=== PATIENT | male | born 1995 | race Caucasian/White ===

== ENCOUNTER 2017-09-06 17:23 | Inpatient (IN) | payer MEDICAID, OTHER ==
--- NOTE | 2017-09-06 17:41 | EDPHY ---
H & P Time Seen by Provider: 09/06/17 17:34 HPI/ROS: HPI Depression. 22-year-old male on foot. Patient has a history of depression. He presents the emergency department complaining of worsening depression over the last 2-3 weeks. He reports that today he has felt helpless. He reports that he is not enjoying things that he usually enjoys. He reports having suicidal thoughts today but does not have a plan to hurt himself. He is currently not on any antidepressant or other psychiatric medications. ROS: Constitutional: No fever, no chills. No weakness. Eyes: No discharge. No changes in vision. ENT: No sore throat. No nasal congestion or rhinorrhea. Respiratory: No cough. No shortness of breath. Cardiac: No chest pain, no palpitations. Gastrointestinal: No abdominal pain, no vomiting, no diarrhea. Genitourinary: No hematuria. No dysuria or increased frequency with urination. Musculoskeletal: No back pain. No neck pain. No myalgias or arthralgias. Skin: No rashes. Neurological: No headache. No focal weakness or altered sensation. Past medical history: Acid reflux. Depression. Social history: Nonsmoker. Denies drugs or alcohol. Here by himself. Physical Exam: General Appearance: Alert, flat affect, tearful. This patient is responding to questions appropriately and in full sentences. This patient appears well- hydrated and well-nourished. Eyes: Pupils equal and round no pallor or injection. No lid edema, erythema or injection. Respiratory: There are no retractions, lungs are clear to auscultation with good air movement bilaterally. Cardiovascular: Regular rate and rhythm. No murmur. Gastrointestinal: Abdomen is soft and nontender, no masses, bowel sounds normal. No focal tenderness at McBurney's point. No Liu sign. Neurological: Motor sensory function is grossly intact. Cranial nerves are normal. Gait is normal. Skin: Warm and dry, no rashes. Musculoskeletal: Neck is supple and nontender. Extremities are symmetrical. All joints range without pain or impingement. Psychiatric: No agitation. As above. Database: EKG: Imaging: Procedures: Emergency department course: Triage vital signs reviewed. He was placed on a detainer at 5:45 p.m.. He is cooperative. Appropriate blood work sent. Behavioral Health notified. 10:30 p.m., the patient is still awaiting evaluation by [facility]. 11:00 p.m., the patient has been seen and evaluated by [facility]. He was placed on an M1 hold. He is going to be admitted to [address] [place] [address] under the care of Dr. Peralta. I have filled out the appropriate transfer paperwork. The patient 's remaining emergency department course under my care has been uneventful. He was transferred in stable condition. Differential Diagnosis: The differential diagnosis on this patient includes but is not limited to situational depression, major depression, suicidal ideation. This represents a partial list of diagnoses considered. These considerations are based on history , physical exam, past history, reassessment and diagnostic testing. Smoking Status: Never smoked Constitutional: Initial Vital Signs Temperature (C) 36.3 C 09/06/17 17:26 Heart Rate 58 L 09/06/17 17:26 Respiratory Rate 17 09/06/17 17:26 Blood Pressure 138/63 H 09/06/17 17:26 O2 Sat (%) 98 09/06/17 17:26 O2 Delivery Mode Room Air Allergies/Adverse Reactions: No Known Allergies Allergy (Verified 11/18/14 11:03) Home Medications: Medication Instructions Recorded NK [No Known Home Meds] 11/18/14 Medical Decision Making - Data Points Laboratory Results: Laboratory Results 09/06/17 18:03 09/06/17 18:03 09/06/17 09/06/17 09/06/17 18:15 18:03 18:03 WBC 8.66 10^3/uL 10^3/uL (3.80-9.50) RBC 4.80 10^6/uL 10^6/uL (4.40-6.38) Hgb 15.3 g/dL g/dL (13.7-17.5) Hct 44.4 % % (40.0-51.0) MCV 92.5 fL fL (81.5-99.8) MCH 31.9 pg pg (27.9-34.1) MCHC 34.5 g/dL g/dL (32.4-36.7) RDW 13.8 % % (11.5-15.2) Plt Count 242 10^3/uL 10^3/uL (150-400) MPV 11.5 fL fL (8.7-11.7) Neut % (Auto) 57.8 % % (39.3-74.2) Lymph % (Auto) 31.2 % % (15.0-45.0) [place] % (Auto) 8.9 % % (4.5-13.0) Eos % (Auto) 1.4 % % (0.6-7.6) Baso % (Auto) 0.5 % % (0.3-1.7) Nucleat RBC Rel Count 0.0 % % (0.0-0.2) Absolute Neuts (auto) 5.01 10^3/uL 10^3/uL (1.70-6.50) Absolute Lymphs (auto) 2.70 10^3/uL 10^3/uL (1.00-3.00) Absolute Monos (auto) 0.77 10^3/uL 10^3/uL (0.30-0.80) Absolute Eos (auto) 0.12 10^3/uL 10^3/uL (0.03-0.40) Absolute Basos (auto) 0.04 10^3/uL 10^3/uL (0.02-0.10) Absolute Nucleated RBC 0.00 10^3/uL 10^3/uL (0-0.01) Immature Gran % 0.2 % % (0.0-1.1) Immature Gran # 0.02 10^3/uL 10^3/uL (0.00-0.10) Sodium 142 mEq/L mEq/L (135-145) Potassium 4.1 mEq/L mEq/L (3.3-5.0) Chloride 102 mEq/L mEq/L (97-110) Carbon Dioxide 26 mEq/l mEq/l (22-31) Anion Gap 14 mEq/L mEq/L (8-16) BUN 14 mg/dL mg/dL (7-23) Creatinine 1.1 mg/dL mg/dL (0.7-1.3) Estimated GFR > 60 Glucose 72 mg/dL mg/dL (70-100) Calcium 9.8 mg/dL mg/dL (8.5-10.4) Urine Opiates Screen NEGATIVE (NEGATIVE) Urine Barbiturates NEGATIVE (NEGATIVE) Ur Phencyclidine Scrn NEGATIVE (NEGATIVE) Ur Amphetamine Screen NEGATIVE (NEGATIVE) U Benzodiazepines Scrn NEGATIVE (NEGATIVE) Urine Cocaine Screen NEGATIVE (NEGATIVE) U Marijuana (THC) Screen NEGATIVE (NEGATIVE) Ethyl Alcohol < 10 mg/dL mg/dL (0-10) Departure - Departure Disposition: [facility] IP Clinical Impression: Suicidal ideation, Depression Referrals: PATY ESPINOZA [Other] - As per Instructions
[2017-09-06 18:13] LABS: PLATELET COUNT 242 10^3/uL (150-400)
[2017-09-07] MEDS ORDERED: NICOTINE POLACRILEX 2 MG GUM B PRN
[2017-09-07] MEDS ORDERED: ACETAMINOPHEN 325 MG TAB PO PRN
[2017-09-07] MEDS ORDERED: MAGNESIUM HYDROXIDE 30 ML UDCUP PO PRN
[2017-09-07] MEDS ORDERED: LORazepam 0.5 MG TAB PO PRN
[2017-09-07] MEDS ORDERED: MAG HYDROX/AL HYDROX/SIMETH 30 ML UDCUP PO PRN
[2017-09-07] MEDS ORDERED: MELATONIN 3 MG TAB PO PRN
[2017-09-07] MEDS: PANTOPRAZOLE SODIUM 40 MG TAB PO SCH (14:10)
[2017-09-07] MEDS: VENLAFAXINE XR 37.5 MG CAP PO SCH (14:10)
[2017-09-07] MEDS: hydrOXYzine HCL 50 MG TAB PO PRN (15:22)
--- NOTE | 2017-09-07 16:27 | BCON ---
[f rep st] BEHAVIORAL HEALTH CONSULTATION INTERNAL MEDICINE CONSULTATION DATE OF CONSULTATION: 09/07/2017 REFERRING PHYSICIAN: Neo Peralta MD REASON FOR REFERRAL: Medical clearance for inpatient behavioral health stay. HISTORY OF PRESENT ILLNESS: This patient self presented to the emergency department, complaining of depression. He was having suicidal thoughts. He was evaluated by the mental health team and admitted for further psychiatric care. He complains of pain and tightness around his stomach. He otherwise is without any acute medical complaints. He reports that he stopped smoking marijuana about a week ago. He reports that he has had GI endoscopy with an upper GI study, including the proximal duodenum, which showed only inflammation with normal biopsy. His abdominal symptoms have been going on for approximately 4 months, over which time he reports he has lost about 40 pounds. PAST MEDICAL HISTORY: Chronic abdominal pain. PAST SURGICAL HISTORY: He has not had any surgeries. MEDICATIONS: He was given a 2-week supply of omeprazole, and he was on no other medications. ALLERGIES: There are no known drug allergies. SOCIAL HISTORY: He is a nonsmoker and nondrinker. He had used regular marijuana for about a year, but has quit for about a week. He lives with his parents and has been working as a service delivery consultant. FAMILY HISTORY: Noncontributory. REVIEW OF SYSTEMS: He reports abdominal discomfort and weight loss. He denies constipation or diarrhea. He has occasional nausea and vomiting, but not recently. He denies cough or dyspnea, fevers or chills, pain other than abdominal pain, and otherwise, a 10-point review of systems is negative. PHYSICAL EXAM: VITALS: Blood pressure is 119/61. Heart rate is 63. Respiratory rate is 14. Oxygen saturation is 92% on room air. Temperature is 36.9 degrees centigrade. His weight is 65.8 kg for a body mass index of 22.7. GENERAL: This is a well-nourished, well-developed man, appears his chronologic age, cooperative and in no acute distress. HEENT: Extraocular movements are intact. Pupils are equal, round, reactive to light. Mucous membranes are moist. Dentition is in good condition. There are no oropharyngeal mucosal abnormalities. He has an uncrowded airway, Mallampati class 2. NECK: Supple. HEART: Regular rate and rhythm, with no murmurs, rubs, or gallops. LUNGS: Clear to auscultation bilaterally. ABDOMEN: Soft, nontender, nondistended, with normoactive bowel sounds. EXTREMITIES: There is no cyanosis, clubbing, or edema. NEUROLOGIC: He is alert and oriented x3. Cranial nerves 2-12 are grossly intact. There is no focal weakness, and sensation is intact to light touch. Gait is within normal limits. LABORATORY STUDIES: From the emergency department, CBC was entirely within normal limits. Serum chemistry revealed normal renal function and electrolytes. Toxicology screen in the serum was negative for ethyl alcohol, and the urine was negative for any substances of abuse. ASSESSMENT AND RECOMMENDATIONS: 1. Mental health issues. Pending further evaluation and management per Psychiatry and the mental health team. 2. Dyspepsia, chronic, and weight loss. He denies that these symptoms have been coincident with his psychiatric symptoms. He reports a normal endoscopy. He has had some relief of symptoms with a proton pump inhibitor, and pantoprazole has been ordered. Advised continuation of pantoprazole. Regarding weight loss, I will order a TSH to ensure that his thyroid function is normal. 3. Marijuana abuse, currently abstinent. Encouraged continued abstinence. I see no medical contraindications to this patient's continued stay on the inpatient behavioral health unit or to any psychiatric medications or procedures. Thank you very much for including me in the care of this patient, and please do not hesitate to contact me or the hospitalist service should there be need for further medical evaluation. /[id number]/MODL MTDD
--- NOTE | 2017-09-07 16:56 | BAPA ---
[f rep st] ADMISSION PSYCHIATRIC ASSESSMENT DATE OF SERVICE: 09/07/2017 CHIEF COMPLAINT: "Thoughts of not wanting to live. Really no thoughts of suicide. Closest plan was thinking about letting go of the wheel while I was driving in traffic. No intent on acting on this plan." HISTORY OF PRESENT ILLNESS: Per ED note dated 09/06/17, the patient presented to the emergency department complaining of worsening depression over the last 2 or 3 weeks. He reported he felt helpless, not enjoying things that he typically enjoyed engaging in. The patient reported having suicidal thoughts today, but no plan to hurt himself. The patient is currently not on any antidepressants or other psychiatric medications. Per [facility] evaluation dated 09/18, the patient reported he was not feeling well, stated he could not stop crying, reported he had lunch with his mom and grandma today and then he went home with thoughts of wanting to and having very dark thoughts. The patient was brought to the [facility] ED by his mother who initially took him to a clinic in [place] and they suggested she take him to the ER. The patient stated he had been having suicidal thoughts for the last 2 weeks and has not been able to stop thinking about it, except when he falls asleep. The patient reported he has been smoking marijuana daily for the past year and a half and he thinks that this was making his thoughts worse so he stopped smoking about a week ago, but now he is not sleeping well. The patient reports he saw a therapist for the first time yesterday, but is not taking any medications, nor has he taken any medications in the past. The patient was admitted involuntarily and is currently on an M1 hold due to a danger to himself and he is hospitalized for safety, crisis stabilization, and medication evaluation. The patient describes circumstances that contributed to crisis that led to current hospitalization, as for the last 2-3 weeks, he has been feeling very depressed and suicidal. Reports he was using marijuana heavily and he quit about a week ago, and that is when these thoughts started. States a history of smoking marijuana all day and then drank alcohol, and this combination, the patient states was like a switch in his head that led to deep depression and dark thoughts. The patient reports no history of being diagnosed with a mental health illness. The patient reports he was using marijuana recently and quit about a week ago prior to this hospitalization. The patient describes current psychiatric symptoms as depression symptoms that have been present for at least a 2-week period over the last 6 months. The patient reports symptoms of depressed mood nearly every day, diminished interest in all activities most of the day, nearly every day. The patient reports a poor appetite. Reports recent insomnia and states he has also had periods of hypersomnia, periods of fatigue nearly every day, feelings of worthlessness and excessive guilt. The patient reports he is having difficulty concentrating when he is feeling very depressed and reports indecisiveness nearly every day and recent suicidal ideation. The patient reports he typically is very anxious. Reports anxiety symptoms, including excessive anxiety and worry occurring more days than not for over at least the last 6 months. Reports difficulty to control his worry. Reports feeling restless and keyed up, being easily fatigued, has difficulty concentrating. Reports periods of irritability, muscle tension, and sleep disturbance. The patient describes no past abuse history. The patient denies other psychiatric symptoms including symptoms of milton, ADHD, OCD, PTSD, psychosis, and any other symptoms of a psychiatric disorder, not already described above. The patient describes current psychiatric symptoms are impacting managing his day-to-day life as having some difficulty with household responsibilities. States he is having no difficulty going to work each day. The patient reports he has not been socializing much. States he does get along with his family and that his mother is very supportive. The patient reports he is currently not in school and he typically enjoys playing video games for hours. However, lately has not been able to get any enjoyment from playing video games. The patient reports he is not generally satisfied with his life at this time. The patient denies current suicidal ideation and reports thoughts of and reports having the thoughts of just wanting all this to end. The patient reports protective factors or reasons to live as his family and friends and states he has a future goal of going back to school and reports his main support network is his mother. The patient denies homicidal ideation and denies current self-injurious ideation. The patient states he currently does not have a provider for medication management and he recently saw Dr. Drake in [place] for therapy. PAST PSYCHIATRIC HISTORY: The patient describes the following psychiatric history. The patient reports no past diagnoses. No past psychotropic medications. No outpatient medication management from a psychiatrist. Reports he has never been inpatient psychiatric hospital. The patient reports no history of withdrawal from drugs or alcohol. The patient reports no history of suicide attempts and no history of self-injurious behavior. ALLERGIES: The patient describes no known allergies. CURRENT MEDICATIONS: None. PAST MEDICAL HISTORY: The patient describes the following: The patient reports no history of neurological disorders including history of organic brain disease, traumatic brain injury, or concussions. The patient reports no major illnesses or no major hospitalizations in his history. SOCIAL HISTORY: The patient describes the following social history. The patient reports he was born in [place]. His parents were at time of his and his parents at age 9. Patient reports he was raised majority of his life in [place] by his mother. Reports he is currently living in [place] with his mother. The patient reports he met all his developmental milestones growing up and reports no history of learning delays or difficulties. The patient reports his sexual orientation is open, mostly heterosexual and states he is currently not in a relationship and has never been and has no children. 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 Highest level of education, high school. No duty. No sikh or spiritual practice and no legal issues. SUBSTANCE USE HISTORY: The patient reports he first used alcohol at the age of 17. Reports using alcohol about once a month. Has about 2 shots per occurrence and last used 3 weeks ago. The patient reports he does not use nicotine. Drinks about 1 cup of coffee per day. Uses marijuana daily and reports he has used as much as 1 ounce per month and reports last using marijuana 1 week ago. The patient reports no other illicit substance use including use of meth, cocaine, crack, heroin, prescription medication abuse, or any other substances of abuse. FAMILY PSYCHIATRIC HISTORY: The patient describes the following family psychiatric history. Reports his mother has been diagnosed with depression and is currently treated with Effexor and Seroquel. The patient reports his sister has been diagnosed with depression. Reports he knows she currently takes antidepressants, but he is unsure of what medication she takes. The patient reports no history of suicide or suicide attempts in his family and reports family history of substance abuse as his dad abuses alcohol. ADMISSION LAB STUDIES: CBC dated 09/06/17, within normal limits. Chemistry dated 09/06/17, within normal limits. Toxicology all negative including being negative for marijuana. The patient did report that he used marijuana 1 week ago. However, his marijuana tox screen is negative. MENTAL STATUS EXAM: The patient is a well-nourished, well-developed male looking stated chronological age. The patient's attire is appropriate. He is dressed casually and is neat and clean. The patient's grooming status is appropriate and clean. His ambulation is independent and gait is normal and coordinated. The patient's posture is normal and relaxed as he is seated answering interview questions. The patient's eye contact is appropriate throughout the interview, is adequate throughout the interview. Motor activity is appropriate and purposeful, organized, coordinated, with no involuntary movements noted. The patient's attitude is cooperative and the patient is friendly. The patient appears to be attentive during the interview and relates well to this interviewer. Language production is spontaneous. Rate, volume, tone, and amount, all within normal limits. Articulation is clear, with no evidencing of impairments. The patient reports mood as anxious. His affect is adequately arranged and congruent with mood. The patient's thought process is linear and logical with no loose associations, tangential thought, thought blocking, concrete thinking, or any other signs of formal thought disorder. The flow is goal-directed. The patient does not report suicidal or homicidal thoughts, ideas, or plans. Patient denies auditory or visual hallucinations. The patient denies delusions. The patient does not appear to be attending to internal stimuli. Orientation is full to person, full to place, full to time, and full to situation. The patient's attention and concentration are adequate. The patient's insight is adequate. Judgment adequate and there is no evidence of gross cognitive dysfunction at any point during the interview and no evidence of apparent dysfunction in recent or remote memory noted. The patient reports that he has currently been having trouble sleeping and his appetite has been "non-existent." DIAGNOSES: 1. Major depressive disorder, severe, with anxious distress. 2. Cannabis use disorder. 3. Cannabis use withdrawal. 4. Generalized anxiety disorder. FORMULATION: The patient is a 22-year-old male, single, employed, living with his mother in [place], [place], who presents to the hospital involuntarily due to risk to harm himself and is currently on an M1 hold. The patient does require continued inpatient care because of current mood instability and recent suicidal thoughts. The patient presents of increasing depression and anxiety symptoms that have been steadily increasing over the past several weeks. The patient's life has been affected by these problems including increased suicidal thoughts, at one point even thinking about how he would carry this out, and increased depression anxiety symptoms that led to this crisis. The exacerbation of symptoms was preceded by the patient abstaining from using marijuana, reporting that these symptoms were exacerbated after he stopped using marijuana about 1 week ago. The patient reports no past psychiatric history and no psychiatric treatment with psychotropic medications, and no other treatment besides recently seeing a therapist one time in [place] prior to this hospitalization. The patient is a moderate to high suicide safety risk due to current mood instability, recent suicidal thoughts, and history of having suicidal thoughts, that the patient reports have been increasing in frequency and intensity. Protective factors while hospitalized include ongoing safety checks, active involvement in treatment, and support from our treatment team. The patient could benefit from inpatient hospitalization for safety, crisis stabilization, and medication evaluation. PLAN OF TREATMENT: 1. Psychotropic medications. After discussing options, risks, and benefits, the patient agrees to Effexor XR 37.5 mg p.o. daily for anxiety and depression. Remeron 15 mg p.o. at bedtime for depression, anxiety, and this medication may treat insomnia symptoms in the short term. Vistaril 50 mg p.o. q.4 hours p.r.n. for anxiety. The patient reports history of gastritis and agrees to a trial of Protonix 40 mg p.o. daily and this will be followed up by Dr. Padilla. 2. Labs. A1c will be added to the ER labs that were recently drawn. A fasting lipid panel to be completed tomorrow morning before breakfast and fasting, and liver function panel to be added to the ER labs that were recently drawn. 3. Therapy. Milieu and group therapy. 4. Further investigation including gathering information from patient's relatives and review of past case records will be ongoing throughout the patient 's stay. 5. Continued evaluation. Will be ongoing during the course of the patient's inpatient hospitalization to inform treatment and discharge planning. 6. Safety plan and followup outpatient appointments to be established prior to discharge. 7. This interviewer will confer with inpatient treatment team regarding initial treatment plan and discharge planning. 8. Review informed consent and recommendations for psychotropic medications with the patient now and throughout the patient's stay. The informed consent and recommendations are listed below. ESTIMATED LENGTH OF STAY: 1 to 3 days. PSYCHOTROPIC MEDICATION TREATMENT INFORMED CONSENT and RECOMMENDATIONS: Review nature of condition, diagnosis, and prognosis. Review nature and purpose of psychotropic medication treatment. Review type of psychotropic medications being ordered. Review risk and benefits of psychotropic medication treatment. Review probable length of time will need to take medications. Review risk and benefits of not undergoing psychotropic medication treatment. Review alternative treatments to psychotropic medications. Review psychotropic medications contraindications, drug-drug interactions, side effects, and importance of reporting any side effects to a psychiatric provider or nurse during inpatient hospitalization, and upon discharge to patients psychiatric outpatient provider, primary care provider, or other health patient care specialist. Review importance of asking a nurse, psychiatric provider, or primary care provider any questions or problems concerning the psychotropic medications. Verifty patient understands the information that has been provided, and understands, accepts, and agrees to psychotropic medications. Review patients safety plan and importance of patient to communicate to staff while hospitalized if patient is ever a danger to self/others, or unable to care for self, and upon discharge, the importance for patient to contact [facility] or [facility], or go to the nearest emergency room, if patient is ever a danger to self/others, or unable to care for self. Recommend that upon discharge patient establish medication management treatment with a psychiatric provider, establishes routine therapy appointments, and follow-up with primary care provider. Verify patient understands and agrees to these recommendations. /[id number]/MODL MTDD
[2017-09-07] MEDS: MIRTAZAPINE 15 MG TAB PO SCH (20:39)
[2017-09-08] MEDS: VENLAFAXINE XR 37.5 MG CAP PO SCH (08:17)
[2017-09-08] MEDS: PANTOPRAZOLE SODIUM 40 MG TAB PO SCH (08:17)
[2017-09-08] MEDS: hydrOXYzine HCL 50 MG TAB PO PRN (10:45)
[2017-09-08] MEDS ORDERED: GABAPENTIN 300 MG CAP PO ONE (10:56)
--- NOTE | 2017-09-08 14:14 | SOAPPROG ---
SOAP Progress Note Assessment/Plan: Assessment: MDD, single episode, severe; ABA. Patient is improving (see subjective/ objective note). Patient could benefit from continued inpatient hospitalization for crisis stabilization, safety, and medication evaluation. Plan: Review psychotropic medication treatment informed consent and recommendations. After reviewing risk and benefits, patient agrees to continue medications with the following changes. Medication changes include start trial of Gabapentin 300 mg po TID for anxiety. No other medication changes at this time as more time is needed to determine ongoing tolerability and efficacy. Plan is to continue to observe patient for response and side effects from medications, and ongoing monitoring and evaluation. Next steps are for patient to meet with wound care rn to plan a safe discharge plan and establish outpatient services for ongoing treatment. Consider discharge on Monday if patient is in stable condition, safe, and has a safe discharge plan. PSYCHOTROPIC MEDICATION TREATMENT INFORMED CONSENT and RECOMMENDATIONS: Review nature of condition, diagnosis, and prognosis. Review nature and purpose of psychotropic medication treatment. Review type of psychotropic medications being ordered. Review risk and benefits of psychotropic medication treatment. Review probable length of time patient will need to take medications. Review risk and benefits of not undergoing psychotropic medication treatment. Review alternative treatments to psychotropic medications. Review psychotropic medications contraindications, drug-drug interactions, side effects, and importance of reporting any side effects to a psychiatric provider or nurse during inpatient hospitalization, and upon discharge to patients psychiatric outpatient provider, primary care provider, or other health child caregiver. Review importance of asking a nurse, psychiatric provider, or primary care provider any questions or problems concerning the psychotropic medications. Verify patient understands the information that has been provided, and understands, accepts, and agrees to psychotropic medications. Review patients safety plan and importance of patient to report to staff while hospitalized if patient is ever a danger to self/others, or unable to care for self, and upon discharge, the importance for patient to contact [facility] or [facility], or go to the nearest emergency room, if patient is ever a danger to self/others, or unable to care for self. Recommend that upon discharge patient establish medication management treatment with a psychiatric provider, establishes routine therapy appointments, and follow-up with primary care provider. Verify patient understands and agrees to these recommendations. 09/08/17 14:15 Subjective: Following up with patient for evaluation of depression, anxiety, and safety. Patient reports, Feel much better, less anxious, and less depressed. Patient reports he has improved since his admission, tolerating medications with no report of side effects, reports attending and engaging in groups, slept 10 hours last night, states his appetite has improved considerably since his admission, eating all meals, reports no SI/HI, and expresses slight anxiety at this time, with no other psychiatric symptoms expressed. Patient agrees to sign -in for voluntary hospitalization with plan to discharge Monday if stable, safe , and safe discharge plan established. Objective: Vital Signs Temp Pulse Resp BP Pulse Ox 36.6 C 59 L 16 112/58 L 98 09/08/17 06:00 09/08/17 06:00 09/08/17 06:00 09/08/17 06:00 09/08/17 06:00 Consulted with treatment team staff for update on patients progress in treatment. Nurses report patient is engaged in his treatment and is progressing well. Patient reports no SI/HI, slept 8 hours per staff report, and is taking meds as prescribed with no report of SEs. store coordinator reports OP appointments are scheduled and referrals have been made for outpatient services. Signs noted: moderately anxious Patient is currently improving, tolerating medications with no reports of side effects, and with good response for anxiety and depression symptoms. The patient presents casually dressed and with good hygiene, and looks stated age. Patient is sitting, posture is upright, and position is relaxed. Patient appears awake, alert, and responds appropriately and reasonably during interview. Patient is engaged, relates well to interviewer, and emotional facial expression is appropriate to situation and changes appropriately with topic. Patient is cooperative, makes comfortable eye contact, and movements are voluntary, deliberate, coordinated, and smooth and even with no inappropriate movements. Patient makes laryngeal sounds effortlessly and shares conversation appropriately; pace of conversation is appropriate, and stream of talking is fluent; articulation is clear and understandable; word choice is effortless and appropriate for education level; completes sentences, occasionally pausing to think; rate and volume are appropriate for interview and setting. Patient reports mood as anxious. Patients affect is stable with full variable range, congruent with mood, and appropriate to speech and circumstances. Patient has linear and logical thinking, with no loose associations, tangential thought, thought blocking, concrete thinking, or any other signs of formal thought disorder. Patient denies suicidal and homicidal ideation, and denies hallucinations and delusions. Patient appears to be a reliable historian with sound judgement and good insight into current condition. Patient has no apparent dysfunction in recent or remote memory noted , and no evidence of gross cognitive dysfunction noted at any point during the interview. - Time Spent With Patient Time Spent With Patient: 30 minutes; met with patient independently. - Pending Discharge Pending Discharge Within 24 Hours: No Pending Discharge Within 48 Hours: No ICD10 Worksheet Patient Problems: Problems Problem Status Onset Passive suicidal ideations Acute Cannabis use disorder, severe, in controlled environment Acute Cannabis withdrawal Acute Generalized anxiety disorder Acute Depression, major, single episode, severe Acute
[2017-09-08] MEDS: GABAPENTIN 300 MG CAP PO SCH ×2 (15:17→22:12)
[2017-09-08] MEDS: MIRTAZAPINE 15 MG TAB PO SCH (22:12)
[2017-09-09] MEDS: GABAPENTIN 300 MG CAP PO SCH ×3 (08:31→21:10)
[2017-09-09] MEDS: VENLAFAXINE XR 37.5 MG CAP PO SCH (08:31)
[2017-09-09] MEDS: PANTOPRAZOLE SODIUM 40 MG TAB PO SCH (08:31)
[2017-09-09] MEDS: hydrOXYzine HCL 50 MG TAB PO PRN ×2 (10:44→18:06)
--- NOTE | 2017-09-09 13:16 | SOAPPROG ---
SOAP Progress Note Assessment/Plan: Assessment: Assessment: MDD, single episode, severe; ABA. Patient is improving (see subjective/ objective note). Patient could benefit from continued inpatient hospitalization for crisis stabilization, safety, and medication evaluation. Plan: 09/09/17 13:09 1. Patient reports significant situational stressors that were contributing to his anxiety and most likely causing stomach issues. He is willing to address these with individual therapy, which MD strongly recommends. 2. Patient denies any SE's from new meds. Complains of some initial drowsiness, but is improving. 3. Denies any SI/HI. 4. Anticipate d/c on Monday. Subjective: Met with patient, reviewed chart and d/w staff. Patient reports mood is "much better" since "we were able to figure out my stomach issues." He believes his stomach pain was d/t anxiety. He says he has been perseverating about "all the horrible things I have to do." When MD asked for examples, patient listed: 1) "paying my taxes which are 2 months late", 2) looking for a better job, and 3) "figuring out what I'm going to do with my life." MD recommended talking to a therapist in order to learn how to cope with these stressors more effectively and to address his anxiety sxs. Patient agreed this was a good idea. Patient denied any SI/HI. Objective: Vital Signs Temp Pulse Resp BP Pulse Ox 36.3 C 79 16 117/70 98 09/09/17 05:51 09/09/17 05:51 09/09/17 05:51 09/09/17 05:51 09/09/17 05:51 MSE: Affect: Euthymic Mood: "Much better" TP: Linear TC: Denies any SI/HI, no AH/VH Insight/Judgment: Fair - Time Spent With Patient Time Spent With Patient: 20" - Pending Discharge Pending Discharge Within 24 Hours: No Pending Discharge Within 48 Hours: Yes Pending Discharge Date: 09/11/17 (Likely to d/c on Monday) Pending Discharge Time: 11:00 ICD10 Worksheet Patient Problems: Problems Problem Status Onset Cannabis use disorder, severe, in controlled environment Acute Cannabis withdrawal Acute Depression, major, single episode, severe Acute Generalized anxiety disorder Acute Passive suicidal ideations Acute
[2017-09-09] MEDS: MIRTAZAPINE 15 MG TAB PO SCH (21:10)
[2017-09-10] MEDS: PANTOPRAZOLE SODIUM 40 MG TAB PO SCH (08:39)
[2017-09-10] MEDS: GABAPENTIN 300 MG CAP PO SCH ×3 (08:39→20:58)
[2017-09-10] MEDS: VENLAFAXINE XR 37.5 MG CAP PO SCH (08:39)
[2017-09-10] MEDS: hydrOXYzine HCL 50 MG TAB PO PRN ×2 (10:54→14:49)
--- NOTE | 2017-09-10 14:17 | SOAPPROG ---
SOAP Progress Note Assessment/Plan: Assessment: Assessment: MDD, single episode, severe; ABA. Patient is improving (see subjective/ objective note). Patient could benefit from continued inpatient hospitalization for crisis stabilization, safety, and medication evaluation. Plan: 09/09/17 13:09 1. Patient reports significant situational stressors that were contributing to his anxiety and most likely causing stomach issues. He is willing to address these with individual therapy, which MD strongly recommends. 2. Patient denies any SE's from new meds. Complains of some initial drowsiness, but is improving. 3. Denies any SI/HI. 4. Anticipate d/c on Monday. 09/10/17 14:13 1. Patient tolerating meds with no SE's, mood is much improved, denies any SI/ HI. 2. Patient feels he is "ready" to discharge, but is willing to leave tomorrow once f/u appts are finalized. 3. Voluntary Subjective: Met with patient, reviewed chart and d/w staff. Patient is sleeping and eating well. He states his stomach is not bothering him any more since he started on Protonix and says his appetite is "much better" since admission. He is eating more in hospital than he did at home. He slept 9.5 hrs last night. MOC came to visit today and felt patient was ready to discharge. She feels patient is doing much better and has no concerns about his safety at her house. Patient was riding the exercise bike this afternoon and said he felt "good." He denies any SI/HI. Objective: Vital Signs Temp Pulse Resp BP Pulse Ox 36.3 C 60 16 111/57 L 95 09/10/17 06:00 09/10/17 06:00 09/10/17 06:00 09/10/17 06:00 09/10/17 06:00 MSE: Affect: Euthymic Mood: "Good" TP: Linear TC: Denies any SI/HI, no AH/VH Insight/Judgment: Fair - Time Spent With Patient Time Spent With Patient: 15" - Pending Discharge Pending Discharge Within 24 Hours: Yes Pending Discharge Within 48 Hours: No Pending Discharge Date: 09/11/17 (Anticipate d/c tomorrow) Pending Discharge Time: 11:00 ICD10 Worksheet Patient Problems: Problems Problem Status Onset Cannabis use disorder, severe, in controlled environment Acute Cannabis withdrawal Acute Depression, major, single episode, severe Acute Generalized anxiety disorder Acute Passive suicidal ideations Acute
[2017-09-10] MEDS: MIRTAZAPINE 15 MG TAB PO SCH (20:59)
[2017-09-11 06:43] VITALS: BP 120/58
[2017-09-11] MEDS: GABAPENTIN 300 MG CAP PO SCH (07:47)
[2017-09-11] MEDS: VENLAFAXINE XR 37.5 MG CAP PO SCH (07:47)
[2017-09-11] MEDS: PANTOPRAZOLE SODIUM 40 MG TAB PO SCH (07:47)
[2017-09-11] MEDS: hydrOXYzine HCL 50 MG TAB PO PRN (09:50)
--- NOTE | 2017-09-11 16:18 | BDS ---
[f rep st] BEHAVIORAL HEALTH DISCHARGE SUMMARY REASON FOR ADMISSION: The patient was admitted on a M1 hold for inpatient hospitalization due to being a danger to himself and patient was admitted for safety, crisis stabilization, and medication evaluation. Per the ED note dated 09/06/2017, the patient presented to the emergency department complaining of worsening depression over the last 2-3 weeks, reporting feeling helpless. The patient reported he is not enjoying things that he typically enjoyed and patient reported having suicidal thoughts, but did not report a plan to hurt himself. For further information regarding reason for admission, please refer to psychiatric assessment and history dated 09/07/2017. ADMITTING DIAGNOSES: 1. Passive suicidal ideations. 2. Cannabis use disorder, severe, in controlled environment. 3. Cannabis withdrawal. 4. Generalized anxiety disorder. 5. Depression, major, single episode, severe. ADMISSION PHYSICAL EXAMINATION: The patient was seen by Dr. Padilla for an internal medicine consultation dated 09/07/2017. The patient did complain of some pain and tightness around his stomach. He was otherwise without any acute medical complaints and reported he stopped smoking marijuana about a week ago. The patient reported he had a GI endoscopy with an upper GI study, including the proximal duodenum, which showed only inflammation with normal biopsy. His abdominal symptoms have been going on for approximately 4 months over which time he reports he had lost about 40 pounds. The patient denied constipation or diarrhea. He reported occasional nausea and vomiting, but not recently. He denied cough, dyspnea, fevers, or chills without pain and any other abdominal pain, and otherwise a 10 point review of systems is negative. The patient's vital signs were within normal limits. His BMI was 22.7. LABORATORY DATA: Admission labs from the emergency department, CBC were entirely within normal limits. Serum chemistry revealed normal renal function and electrolytes. Toxicology screen in the serum was negative for alcohol and urine was negative for any substances of abuse. Fasting lipid panel, LDL cholesterol calculated was somewhat elevated at 114. All other fasting lipid panel results within normal limits. TSH within normal limits and toxicology was negative for all substances including marijuana, however, the patient did report using marijuana within the last week. HOSPITAL COURSE: The most prominent symptoms and behaviors while the patient was here were anxiety, depression, and insomnia. Target symptoms during hospitalization included anxiety, depression and insomnia. Treatment modalities utilized were as follows: Milieu and group therapy. Effexor XR 37.5 p.o. daily was started to target anxiety and depression symptoms. Medication was tolerated with no report of side effects and with fair response for symptoms. Remeron 7.5 mg p.o. at bedtime was started to target depression and insomnia symptoms. The medication was tolerated with no report of side effects and with good response for depression and insomnia symptoms. Vistaril 50 mg p.o. q.4 hours p.r.n. was started to target anxiety symptoms. This medication was tolerated with no report of side effects and with good response. The patient reported taking the Vistaril about once or twice a day and reported relief of anxiety symptoms after taking this medication. Gabapentin 300 mg p.o. three times daily was started to target anxiety symptoms. Medication was tolerated with no report of side effects and with good response. Protonix 40 mg p.o. daily was started to target abdominal discomfort symptoms. The patient reported no side effects from this medication and reported that upon discharge reported no more abdominal discomfort and reported that he plans to continue Prilosec after discharge. Overall, patient is improved considerably with no signs of psychiatric symptoms and no psychiatric symptoms expressed. The patient reports he has improved since his admission, states to be in stable condition and feels safe to discharge and contract for safety. The patient's response to treatment has been good. There were no adverse or unexpected results of treatment. The patient was safe throughout his stay, active in treatment, the patient engaged in groups and was appropriate with staff throughout the stay. The treatment team consensus is the patient is in stable condition and is safe to discharge today. CONDITION AT DISCHARGE: Patient is in stable condition and is no longer a danger to self or others, and is not gravely disabled due to mental illness. Patient is no longer in need of inpatient level of care, and can be safely and effectively treated within the community. The patients level of risk at time of discharge is low based on the risk assessment below following this discharge summary. MSE: The patient is casually dressed and with good hygiene, and looks stated age. Patient is sitting, posture is upright, and position is relaxed. Patient appears awake, alert, and responds appropriately and reasonably during interview. Patient is engaged, relates well to interviewer, and emotional facial expression is appropriate to situation and changes appropriately with topic. Patient is cooperative, makes comfortable eye contact, and movements are voluntary, deliberate, coordinated, and smooth and even with no inappropriate movements. Patient makes laryngeal sounds effortlessly and shares conversation appropriately; pace of conversation is appropriate, and stream of talking is fluent; articulation is clear and understandable; word choice is effortless and appropriate for education level; completes sentences, occasionally pausing to think; rate and volume are appropriate for interview and setting. Patient reports mood as euthymic. Patients affect is stable with full variable range, congruent with mood, and appropriate to speech and circumstances. Patient has linear and logical thinking, with no loose associations, tangential thought, thought blocking, concrete thinking, or any other signs of formal thought disorder. Patient denies suicidal and homicidal ideation, and denies hallucinations and delusions. Patient appears to be a reliable historian with sound judgement and good insight into current condition. Patient has no apparent dysfunction in recent or remote memory noted , and no evidence of gross cognitive dysfunction noted at any point during the interview. DISCHARGE DIAGNOSES: Cannabis use disorder; severe generalized anxiety disorder ; depression, major, single episode, severe. DISCHARGE MEDICATIONS: Effexor XR 37.5 mg p.o. daily, Remeron 7.5 mg p.o. at bedtime, gabapentin 300 mg p.o. three times daily, Vistaril 50 mg p.o. q.8 hours p.r.n. DISPOSITION: The patient's mother arrived today at the hospital to forklift picker the patient. The patient left hospital independently and voluntarily with his mother and plans to return home and stay with his mother after discharge. FOLLOWUP: fitness plan coordinator reports the appropriate outpatient follow-up services have been established and outpatient appointments have been scheduled. The patient received written instructions with times and dates of outpatient follow-up appointments. The following follow-up recommendations were provided to the patient at discharge: Continue psychotropic medications as prescribed and attend appointments as scheduled. Report any side effects to a psychiatric outpatient provider, a primary care provider, or other health family day care worker. Address any questions or problems concerning the psychotropic medications with a psychiatric outpatient provider, a primary care provider, or other health family day care worker. Contact [facility] or [facility], or go to the nearest emergency room, if you are ever a danger to yourself/others, or unable to care for yourself. As soon as possible, establish a routine medication management treatment with a psychiatric provider, establish routine therapy appointments, and follow-up with a primary care provider. LEGAL COURSE: The patient was on an M1 hold upon arriving. The patient was on the M1 hold due to be a danger to himself and was involuntarily hospitalized for safety crisis stabilization and medication evaluation. The patient did become voluntary during his stay and was discharged today independently and voluntarily. ATTITUDE AT TIME OF DISCHARGE: The patient's attitude was positive at time of discharge and the patient reports looking forward to discharging today. The patient reports he feels safe at discharge, is no longer a danger to himself or others, is in stable condition and contracts for safety. The patient states he will continue medications as prescribed and established medication management treatment with an outpatient provider after discharge. The patient reports he understands the information that has been provided to him and he understands, accepts and agrees to psychotropic medications. The patient reports internal protective factors as the coping skills he has learned while hospitalized here and he plans to continue to practice these coping skills after discharge. The patient reports external protective factors as his family, hobbies including currently making salsa and his friends. The patient describes looking forward to having lunch with his mother, walking his sister's dog and going for a run today after discharge. 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 The patient reports his family and friends look forward to him discharging today. The patient's mother reports the patient has a safe discharge plan and is safe to discharge. This interviewer met with patient and his mother just prior to the patient discharging to review treatment plan, medications and ongoing outpatient treatment and safety. At that time the mother did report to this provider that her impression is that the patient has improved considerably and she feels safe with the plan for the patient to discharge today. PENDING LABS: There were no pending labs or studies at time of discharge. ADVANCED DIRECTIVES: There are no advanced directives on file and the patient was full code during hospitalization. The following psychotropic medication treatment informed consent and recommendations were provided to the patient at time of discharge. Patient reports he understands, accepts, and agrees to the information that has been provided. PSYCHOTROPIC MEDICATION TREATMENT INFORMED CONSENT and RECOMMENDATIONS: Review nature of condition, diagnosis, and prognosis. Review nature and purpose of psychotropic medication treatment. Review type of psychotropic medications being prescribed. Review risk and benefits of psychotropic medication treatment. Review probable length of time will need to take medications. Review risk and benefits of not undergoing psychotropic medication treatment. Review alternative treatments to psychotropic medications. Review psychotropic medications contraindications, side effects, and importance of reporting any side effects to a psychiatric provider, primary care provider, or other health family day care worker. Review importance of her asking a psychiatric provider or primary care provider any questions or problems concerning the psychotropic medications. Review safety plan and the importance to contact [facility] or [facility] , or go to the nearest emergency room, if ever a danger to yourself/others, or unable to care for yourself. Recommend upon discharge to establish routine medication management treatment with a psychiatric provider, establish routine therapy appointments, and follow-up with a primary care provider. Verify patient understands, accepts, and agrees to the information that has been provided. SUICIDE ASSESSMENT FIVE-STEP EVALUATION AND TRIAGE (1) RISK FACTORS: (a) Suicidal behavior: no previous suicide attempts (b) Current/past psychiatric disorders: depression and anxiety (c) [place] symptoms: mild anxiety (d) Family history: none (e) Precipitants/Stressors/Interpersonal: none (f) Change in treatment: discharge from psychiatric hospital (g) Access to firearms: none (2) PROTECTIVE FACTORS: (a) Internal: coping skills (b) External: future, family, and friends (3) SUICIDAL INQUIRY: (a) Ideation: none (b) Plan: none (c) Behaviors: none (d) Intent: none (4) RISK LEVEL: Low: modifiable risk factors, strong protective factors; no self -injurious or suicidal ideation. Intervention: treatment plan to reduce symptoms: medications and therapy, provided emergency/crisis numbers, follow-up plan. /[id number]/[id number]
== END 2017-09-11 13:10 | disposition home or self-care (01) | DRG 885 ==
LOC: BBEH 09-07 00:05
PROVIDERS: ADMIT Psychiatry & Neurology Psychiatry; ATTEND Psychiatry & Neurology Psychiatry
DX: F32.2 Major depressive disorder, single episode, severe without psychotic features (principal); F41.1 Generalized anxiety disorder; F12.259 Cannabis dependence with psychotic disorder, unspecified; F12.288 Cannabis dependence with other cannabis-induced disorder; F12.280 Cannabis dependence with cannabis-induced anxiety disorder; R10.13 Epigastric pain
CPT/HCPCS: 80305; G0480